=== PATIENT | male | born 1975 | race Caucasian/White ===

== ENCOUNTER 2022-06-04 12:40 | Emergency (ER) | payer MEDICAID ==
[~2022-06-04] VITALS: Ht 185.4 cm; Wt 122.7 kg
[~2022-06-04 12:40] MED LIST: ARM1EACH89; DEXA4TAB67 PO; IBUP-1985 PO; ORPH100T2 PO
[2022-06-04 13:03] VITALS: BP 187/97
== END 2022-06-04 14:28 | disposition home or self-care (01) ==
LOC: ER 12:41
DX: M25.561 Pain in right knee (principal); M25.461 Effusion, right knee; M54.9 Dorsalgia, unspecified; Z88.8 Allergy status to other drugs, medicaments and biological substances; Z79.899 Other long term (current) drug therapy
CPT/HCPCS: 73564; 99283

== ENCOUNTER 2022-08-02 02:30 | Emergency (ER) | payer MEDICAID ==
[~2022-08-02] VITALS: Ht 185.4 cm; Wt 125.0 kg
[2022-08-02 02:33] VITALS: BP 167/116
[2022-08-02] MEDS ORDERED: HYDR-3965 PO (02:59)
[2022-08-02] MEDS ORDERED: AMOX500C2 PO (02:59)
[2022-08-02] MEDS: amoxicillin 250mg capsule PO ONE (03:03)
[2022-08-02] MEDS: ondansetron 4mg rapidly disintigrating tab PO ONE (03:04)
[2022-08-02] MEDS: HYDROcodone/acetaminophen 5mg/325mg tablet PO ONE (03:05)
== END 2022-08-02 03:11 | disposition home or self-care (01) ==
LOC: ER 02:30
DX: K08.89 Other specified disorders of teeth and supporting structures (principal); Z88.8 Allergy status to other drugs, medicaments and biological substances; Z79.899 Other long term (current) drug therapy
CPT/HCPCS: 99284

== ENCOUNTER 2022-08-05 01:54 | Emergency (ER) | payer MEDICAID ==
[~2022-08-05] VITALS: Ht 185.4 cm; Wt 123.6 kg
[~2022-08-05 01:54] MED LIST changes: +AMOX500C2 PO; +HYDR-3965 PO
[2022-08-05 02:20] VITALS: BP 165/101
== END 2022-08-05 03:36 | disposition left against medical advice (07) ==
LOC: ER 01:55
DX: K08.89 Other specified disorders of teeth and supporting structures (principal); K02.9 Dental caries, unspecified; Z88.8 Allergy status to other drugs, medicaments and biological substances; Z79.899 Other long term (current) drug therapy
CPT/HCPCS: 99282

== ENCOUNTER 2023-07-07 15:01 | Emergency (ER) | payer MEDICAID ==
[~2023-07-07] VITALS: Ht 185.4 cm; Wt 117.5 kg
[~2023-07-07 15:01] MED LIST changes: -AMOX500C2 PO; -HYDR-3965 PO; -ORPH100T2 PO; +ORPH100T4 PO
[2023-07-07 15:04] VITALS: BP 166/97; PULSE 104; RESP 18; TEMP 98.6; O2SAT 99
[2023-07-07] MEDS ORDERED: CLIN-97 PO (15:20)
== END 2023-07-07 16:41 | disposition home or self-care (01) ==
LOC: ER 15:01
DX: K04.7 Periapical abscess without sinus (principal); Z91.040 Latex allergy status; Z88.6 Allergy status to analgesic agent; Z79.899 Other long term (current) drug therapy
CPT/HCPCS: 99283

== ENCOUNTER 2023-11-07 15:58 | Emergency (ER) | payer MEDICAID ==
[~2023-11-07] VITALS: Ht 185.4 cm; Wt 109.1 kg
[~2023-11-07 15:58] MED LIST changes: +CLIN-97 PO
[2023-11-07] MEDS ORDERED: iohexol 300mg/ml 100ml inj. ONE (16:27)
[2023-11-07 16:38] LABS: BASOPHILS # (AUTO) 0.1 X10'3 (0-0.2); BASOPHILS % (AUTO) 0.8 % (0-1); EOSINOPHILS # (AUTO) 0.4 X10'3 (0-0.9); EOSINOPHILS % (AUTO) 5.1 % (0-6); HEMATOCRIT 47.4 % (42.0-52.0); HEMOGLOBIN 16.2 g/dl (14.0-17.9); LYMPHOCYTES # (AUTO) 3.1 X10'3 (1.1-4.8); LYMPHOCYTES % (AUTO) 36.2 % (21-51); MEAN CORPUSCULAR HEMOGLOBIN 32.3 PG (27.0-31.0); MEAN CORPUSCULAR HGB CONC 34.2 g/dL (33.0-36.5); MEAN CORPUSCULAR VOLUME 94.3 FL (78-98); MEAN PLATELET VOLUME 8.4 FL (7.4-10.4); MONOCYTES # (AUTO) 0.7 X10'3 (0-0.9); MONOCYTES % (AUTO) 8.3 % (2-12); NEUTROPHILS # (AUTO) 4.2 X10'3 (1.8-7.7); NEUTROPHILS % (AUTO) 49.6 % (42-75); PLATELET COUNT 257 X10'3 (140-440); RED BLOOD COUNT 5.02 X10'6 (4.70-6.10); RED CELL DISTRIBUTION WIDTH 13.4 % (11.5-14.5); WHITE BLOOD COUNT 8.5 X10'3 (4.5-11.0)
[2023-11-07 16:52] LABS: ALANINE AMINOTRANSFERASE 34 U/L (12-78); ALBUMIN 4.2 G/DL (3.4-5.0); ALBUMIN/GLOBULIN RATIO 1.3 (1.1-1.5); ALKALINE PHOSPHATASE 62 IU/L (46-116); ANION GAP 10 (8-16); ASPARTATE AMINO TRANSFERASE 24 U/L (10-37); BILIRUBIN,TOTAL 0.6 MG/DL (0.1-1.0); BLOOD UREA NITROGEN 12 MG/DL (7-18); BUN/CREATININE RATIO 9.8 (10.0-20.0); CALCIUM 9.2 MG/DL (8.5-10.1); CHLORIDE 105 MMOL/L (99-107); CREATININE 1.22 MG/DL (0.60-1.10); ETHANOL < 10 MG/DL (<10); GLUCOSE 127 MG/DL (70-104); POTASSIUM 4.6 MMOL/L (3.5-5.1); SODIUM 142 MMOL/L (135-145); TOTAL CARBON DIOXIDE 26.9 MMOL/L (24-32); TOTAL PROTEIN 7.4 G/DL (6.4-8.2); eCRCL 85 ML/MIN; eGFR 64 ML/MIN
[2023-11-07] MEDS: acetaminophen 1,000mg/100ml IV 100 ML IV ONE (17:07)
[2023-11-07] MEDS: TETanus/Pertussis (Acell)/Diphther VAC/PF (Tdap-Adult) 0.5ml syringe IMVAC ONE (17:11)
[2023-11-07] MEDS: acetaminophen 1,000mg/100ml IV 100 ML IV STA (17:12)
[2023-11-07] MEDS: ketorolac tromethamine 15mg/ml inj. IV ONE (17:33)
[2023-11-07 17:57] VITALS: BP 185/113; PULSE 89; RESP 16; TEMP 98.6; O2SAT 98
== END 2023-11-07 18:01 | disposition home or self-care (01) ==
LOC: ER 15:59
DX: S40.812A Abrasion of left upper arm, initial encounter (principal); S40.212A Abrasion of left shoulder, initial encounter; S20.311A Abrasion of right front wall of thorax, initial encounter; S80.211A Abrasion, right knee, initial encounter; S80.811A Abrasion, right lower leg, initial encounter; S50.312A Abrasion of left elbow, initial encounter; S50.311A Abrasion of right elbow, initial encounter; R51.9 Headache, unspecified; Z88.4 Allergy status to anesthetic agent; Z79.1 Long term (current) use of non-steroidal anti-inflammatories (NSAID); Z79.2 Long term (current) use of antibiotics; Z79.899 Other long term (current) drug therapy; V29.888A Rider (driver) (passenger) of other motorcycle injured in other specified transport accidents, initial encounter; Y93.89 Activity, other specified; Y92.89 Other specified places as the place of occurrence of the external cause; Y99.8 Other external cause status
CPT/HCPCS: 36415; 70450; 71045; 71260; 72125; 72190; 74177; 80053; 80320; 85025; 90471; 90715; 93005; 96374; 96375; 99285; A6223; J0131; J1885; J3490; J7030; L0172; Q9967; A6258; A6449

== ENCOUNTER 2024-07-31 08:32 | Emergency (ER) | payer MEDICAID ==
[~2024-07-31] VITALS: Ht 185.4 cm; Wt 113.6 kg
[2024-07-31 08:56] VITALS: BP 128/80; PULSE 98; O2SAT 98
[2024-07-31] MEDS ORDERED: PRED20TA PO (11:06)
[2024-07-31] MEDS ORDERED: PROM25TA14 PO (11:06)
[2024-07-31 11:08] VITALS: RESP 16
[2024-07-31] MEDS: ketorolac trometh 30MG/ML vial 30 MG/ML VIAL IM ONE (11:08)
[2024-07-31] MEDS: dexamethasone sod phosphate 10mg/ml inj IM STA (11:08)
[2024-07-31 11:13] VITALS: TEMP 98.7
== END 2024-07-31 11:15 | disposition home or self-care (01) ==
LOC: ER 08:32
DX: B34.9 Viral infection, unspecified (principal); Z88.8 Allergy status to other drugs, medicaments and biological substances; Z79.1 Long term (current) use of non-steroidal anti-inflammatories (NSAID); Z79.899 Other long term (current) drug therapy; Z20.822 Contact with and (suspected) exposure to COVID-19
CPT/HCPCS: 36415; 71046; 87502; 87503; 87811; 96372; 99284; J1100; J1885